=== PATIENT | male | born 1950 | race Caucasian/White ===

== ENCOUNTER 2018-09-25 11:32 | Emergency (ER) | payer MEDICARE, OTHER ==
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
[2018-09-25] MEDS ORDERED: Tetan/Diph/Pertus SYR(Tdap)* 0.5 ML SYR(BOOSTRIX) use SYR IM ONE (12:05)
[2018-09-25] MEDS ORDERED: Acetaminophen TAB* 325 MG PO ONE (14:08)
[2018-09-25 15:52] LABS: ABS Basophils 0.1 10^3/ul (0-0.2); ABS Eosinophils 0 10^3/ul (0-0.6); ABS Monocytes 0.6 10^3/ul (0-0.8); ABS Neutrophils 9.2 10^3/ul (1.5-7.7); ABS Nucleated RBC 0 10^3/ul; Eosinophil % 0.3 %; Hematocrit 37 % (42-52); Hemoglobin 12.8 g/dl (14.0-18.0); Lymphocyte % 9.5 %; Mean Corpuscular HGB Conc 35 g/dl (31-36); Mean Corpuscular Hemoglobin 31 pg (27-31); Mean Corpuscular Volume 89 fL (80-94); Mean Platelet Volume 7.7 fL (7.4-10.4); Nucleated Red Blood Cells % 0.1; Platelet Count 197 10^3/ul (150-450); Red Blood Count 4.09 10^6/ul (4.00-5.40); Red Cell Distribution Width 13 % (10.5-15); White Blood Count 10.8 10^3/ul (3.5-10.8)
[2018-09-25 16:15] LABS: Albumin 3.8 g/dL (3.2-5.2); Albumin/Globulin Ratio 1.7 (1-3); BUN/Creatinine Ratio 18.8 (8-20); Calcium 8.7 mg/dL (8.6-10.3); EGFR Non-African American 113.7 (>60); Globulin 2.3 g/dL (2-4); Potassium 3.9 mmol/L (3.5-5.0); Total Bilirubin 0.5 mg/dL (0.2-1.0); Total Protein 6.1 g/dL (6.4-8.9)
[2018-09-25] MEDS ORDERED: Iohexol 300* (CONTRAST) 10 ML SDV IV ONE (16:34)
[2018-09-25] MEDS ORDERED: HYDROcodone/ACETAMIN 5-325 MG* 1 TAB PO ONE (18:25)
[2018-09-25 20:24] VITALS: BP 129/72
== END 2018-09-25 20:23 | disposition home or self-care (01) ==
LOC: ED 11:32
DX: S32.9XXA Fracture of unspecified parts of lumbosacral spine and pelvis, initial encounter for closed fracture (principal); V03.90XA Pedestrian on foot injured in collision with car, pick-up truck or van, unspecified whether traffic or nontraffic accident, initial encounter; Y92.481 Parking lot as the place of occurrence of the external cause; I25.10 Atherosclerotic heart disease of native coronary artery without angina pectoris; I10 Essential (primary) hypertension; Z23 Encounter for immunization
CPT/HCPCS: 36415; 72131; 72170; 74177; 80053; 85025; 90471; 90715; 96374; 99283; A9270-GY; Q9967

== ENCOUNTER 2019-02-06 12:08 | Inpatient (IN) | payer OTHER, MEDICARE ==
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
[2019-02-06 18:05] LABS: Hematocrit 36 % (42-52); Hemoglobin 12.4 g/dL (14.0-18.0); Mean Corpuscular HGB Conc 34 g/dL (31-36); Mean Corpuscular Hemoglobin 29 pg (27-31); Mean Corpuscular Volume 85 fL (80-94); Mean Platelet Volume 7.4 fL (7.4-10.4); Platelet Count 413 10^3/uL (150-450); Red Blood Count 4.29 10^6 /uL (4.18-5.48); Red Cell Distribution Width 15 % (10.5-15); White Blood Count 7.9 10^3/uL (3.5-10.8)
[2019-02-06 18:19] LABS: Albumin 3.9 g/dL (3.2-5.2); Albumin/Globulin Ratio 1.1 (1-3); BUN/Creatinine Ratio 11.1 (8-20); Calcium 9.1 mg/dL (8.6-10.3); EGFR African American 152.3 (>60); EGFR Non-African American 125.9 (>60); Globulin 3.7 g/dL (2-4); Potassium 3.8 mmol/L (3.5-5.0); Total Bilirubin 0.9 mg/dL (0.2-1.0); Total Protein 7.6 g/dL (6.4-8.9)
[2019-02-06 18:21] LABS: Troponin I 0.01 ng/mL (<0.04)
[2019-02-06] MEDS ORDERED: Metoprolol Tartrate IV* 1 MG/ML 5 ML VIAL IV ONE ×2 (18:33→19:27)
[2019-02-06 19:00] LABS: ABS Basophils 0 10^3/ul (0-0.2); ABS Eosinophils 0.1 10^3/ul (0-0.6); ABS Lymphocytes 1.3 10^3/ul (1.0-4.8); ABS Monocytes 0.6 10^3/ul (0-0.8); ABS Nucleated RBC 0 10^3/ul; Eosinophil % 0.8 %; Lymphocyte % 16.2 %; Nucleated Red Blood Cells % 0
[2019-02-06] MEDS ORDERED: Metoprolol Tartrate IV* 1 MG/ML 5 ML VIAL IV PRN (19:27)
[2019-02-06] MEDS ORDERED: Furosemide IV* 10 MG/ML VIAL (40 MG) IV SLOW PU ONE (19:30)
[2019-02-06] MEDS ORDERED: Iohexol 350* (CONTRAST) 500 ML MDV IV ONE (19:51)
[2019-02-06 20:25] LABS: TSH (Thyroid Stimulating Horm) 3.05 mcIU/mL (0.34-5.60)
[2019-02-06] MEDS: Metoprolol Succinate XL TAB* 50 MG PO SCH (20:31)
[2019-02-06] MEDS ORDERED: Apixaban* 5 MG TAB PO SCH (21:00)
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
[2019-02-07 06:23] LABS: ABS Basophils 0.1 10^3/ul (0-0.2); ABS Eosinophils 0.1 10^3/ul (0-0.6); ABS Lymphocytes 1.4 10^3/ul (1.0-4.8); ABS Monocytes 0.7 10^3/ul (0-0.8); ABS Neutrophils 3.6 10^3/ul (1.5-7.7); ABS Nucleated RBC 0 10^3/ul; Eosinophil % 1.1 %; Hematocrit 32 % (42-52); Hemoglobin 10.9 g/dL (14.0-18.0); Mean Corpuscular HGB Conc 34 g/dL (31-36); Mean Corpuscular Hemoglobin 29 pg (27-31); Mean Corpuscular Volume 84 fL (80-94); Mean Platelet Volume 7.1 fL (7.4-10.4); Nucleated Red Blood Cells % 0; Platelet Count 451 10^3/uL (150-450); Red Blood Count 3.79 10^6 /uL (4.18-5.48); Red Cell Distribution Width 15 % (10.5-15); White Blood Count 5.8 10^3/uL (3.5-10.8)
[2019-02-07 06:35] LABS: BUN/Creatinine Ratio 15.3 (8-20); Calcium 8.6 mg/dL (8.6-10.3); EGFR African American 164.3 (>60); EGFR Non-African American 135.8 (>60); Potassium 3.8 mmol/L (3.5-5.0)
[2019-02-07] MEDS ORDERED: Furosemide IV* 10 MG/ML 2 ML VIAL (20 MG) IV SLOW PU ONE (07:40)
[2019-02-07] MEDS ORDERED: Pneumococcal *Vac Polyvalent 0.5 ML VIAL IM ONE (09:00)
[2019-02-07] MEDS: Metoprolol Succinate XL TAB* 50 MG PO SCH ×2 (10:01→20:57)
[2019-02-07] MEDS: Aspirin EC TAB* 81 MG TAB.EC PO SCH (10:01)
--- NOTE | 2019-02-07 10:36 | ECHO ---
*[facility]* [place] [address] Fax #: [phone] Transthoracic Echocardiogram Patient: Lito Height: 72 in / Charbel Corona 182.9 cm : 1950 Weight: 174.6 lb / Study Date: 02/07/2019 79.4 kg Age: 68 BP: 97 / 65 Gender: M BMI/BSA: 23.7 kg/m^2 HR: 120 bpm / 2.01 m^2 *Translator/Interpreter: * Jovanna Martell RDCS RN *Referring Physician: Senait JacksonReading Physician: * Wander Orozco MD Indications: Congestive Heart Failure. SOB. History: Paroxysmal Atrial fibrillation. Coronary artery disease. Risk factors: Hypertension. Conclusions Summary: 1. Left ventricle: Systolic function is normal. The estimated ejection fraction is 50-55%. 2. Normal cardiac chamber sizes. 3. Functionally benign heart valves. 4. Pericardium, extracardiac: A small pericardial effusion is identified circumferential to the heart. Features are not consistent with tamponade physiology. 5. Since the prior echocardiogram completed 01/23/18, pertinent change is prior pericardial effusion not noted. Study data: Transthoracic echocardiogram. Procedure: Transthoracic echocardiography was performed. Image quality was fair. The patient was sitting upright in bed to facilitate comfortable breathing. Complete 2D, spectral Doppler, and color flow Doppler. Patient status: Inpatient. Patient room number: 444-1. Rhythm: Atrial fibrillation. Findings Left ventricle: The cavity size is normal. Wall thickness is normal. There is a septal knuckle measuring 1.3 cm. Systolic function is normal. The estimated ejection fraction is 50-55%. Left ventricular diastolic function parameters are indeterminate. Right ventricle: The cavity size is normal. Systolic function is normal. Left atrium: The atrium is normal in size. Right atrium: The atrium is normal in size. Mitral valve: The leaflets are mildly thickened. There is trivial regurgitation. The peak diastolic gradient is 2.6 mm Hg. Aortic valve: The valve is trileaflet. The leaflets are mildly thickened. There is no evidence of stenosis. There is no regurgitation. The LVOT to aortic valve VTI ratio is 0.69. The ratio of LVOT to aortic valve peak velocity is 0.77. The ratio of LVOT to aortic valve mean velocity is 0.7. The mean systolic gradient is 2.0 mm Hg. The peak systolic gradient is 4.0 mm Hg. Tricuspid valve: The leaflets are normal thickness. There is trivial regurgitation. Unable to estimate the pulmonary artery systolic pressure. Pulmonic valve: The valve is structurally normal. There is no evidence of stenosis. There is trivial regurgitation. The peak systolic gradient is 2.0 mm Hg. Aorta: Aortic root: The aortic root is not dilated. Ascending aorta: The ascending aorta is not dilated. Aortic arch: The aortic arch is not visualized. Pericardium: A small pericardial effusion is identified circumferential to the heart. There is a left pleural effusion which appears sizable. Doppler: Features are not consistent with tamponade physiology. Pulmonary arteries: Not well visualized. Systemic veins: Inferior vena cava: The vessel is normal in size. Respirophasic changes in dimension are absent. Measurements Left ventricle Value Ref Left atrium continued Value Ref KIA, LAX (L) 3.6 cm 4.2 - 5.8 Vol/bsa, ES, 1-p 27 ml/m^2 11 - 43 ESD, LAX 2.6 cm 2.5 - 4.0 A2C FS, LAX 28 % 25 - 43 Vol/bsa, ES, A/L 22 ml/m^2 16 - 34 PW, ED, LAX 1.0 cm 0.6 - 1.0 IVS/PW, ED 1 Right atrium Value Ref E', lat sangita, TDI 11.4 cm/sec >=10.0 ML dim, ES, A4C 3.1 cm 2.6 - E/e', lat sangita, 7 4.4 TDI SI dim, ES, A4C 3.7 cm 3.4 - E', med sangita, TDI 8.0 cm/sec >=7.0 5.3 E/e', med sangita, 10 TDI Aortic valve Value Ref E', avg, TDI 9.7 cm/sec Sangita diam, ED 2.2 cm --- ----- E/e', avg, TDI 8 <=14 Peak v, S 0.98 m/sec -------- Mean v, S 0.69 m/sec -------- LVOT Value Ref VTI, S 15.0 cm -------- Peak kaylin, S 0.76 m/sec Mean grad, S 2.0 mm Hg -------- Mean kaylin, S 0.49 m/sec Peak grad, S 4.0 mm Hg -------- VTI, S 10.3 cm Mean grad, S 1 mm Hg Mitral valve Value Ref Peak E 0.8 m/sec -------- Ventricular septum Value Ref Decel time 123 ms -------- IVS, ED, LAX 1.0 cm 0.6 - 1.0 Peak grad, D 2.6 mm Hg -------- Right ventricle Value Ref Aortic root Value Ref KIA, LAX 2.1 cm Root diam 3.2 cm <4.1 KIA minor ax, 3.0 cm 1.9 - 3.5 Root max diam, ED 3.2 cm <4.1 A4C mid Ascending aorta Value Ref Left atrium Value Ref AAo AP diam, S 2.8 cm -------- AP dim, ES 3.20 cm 3.00 - 4.00 Inferior vena cava Value Ref ML dim, A4C 3.9 cm Diam 2.1 cm -------- SI dim, A4C 4.8 cm Vol/bsa, ES, 1-p 16 ml/m^2 12 - 37 A4C Legend: (L) and (H) link values outside specified reference range. Prepared and electronically signed by Wander Orozco MD 02/07/2019 10:35
[2019-02-07] MEDS ORDERED: Diltiazem IV push/loading dose 5 MG/ML 5 ML vial (25 mg) IV SLOW PU ONE (12:27)
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
[2019-02-07] MEDS ORDERED: Diltiazem IV VIAL* 125 MG in NS 0.9% 100 ML* 100 ML IV SCH ×2 (13:00→16:00)
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
[2019-02-07 22:56] LABS: Urine Appearance Clear; Urine Bilirubin Negative (Negative); Urine Blood Negative (Negative); Urine Color Yellow; Urine Glucose Negative (Negative); Urine Ketones Negative (Negative); Urine Nitrite Negative (Negative); Urine Protein Negative (Negative); Urine Specific Gravity 1.018 (1.010-1.030); Urine Urobilinogen Positive (Negative)
[2019-02-08] MEDS: Diltiazem TAB* 30 MG PO SCH ×3 (01:27→11:43)
[2019-02-08 06:25] LABS: BUN/Creatinine Ratio 18.8 (8-20); C Reactive Protein 82.93 mg/L (<8.01); Calcium 8.4 mg/dL (8.6-10.3); EGFR African American 137.2 (>60); EGFR Non-African American 113.4 (>60); Potassium 3.9 mmol/L (3.5-5.0)
[2019-02-08] MEDS: Aspirin EC TAB* 81 MG TAB.EC PO SCH (09:20)
[2019-02-08] MEDS: Metoprolol Succinate XL TAB* 50 MG PO SCH (09:20)
[2019-02-08 09:34] VITALS: BP 100/64
[2019-02-08] MEDS ORDERED: Apixaban* 5 MG TAB PO ONE (11:12)
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
[2019-02-11 18:03] LABS: Albumin 2.5 g/dL (3.4-4.7); Albumin/Globulin Ratio 0.88; Total Protein(PEP) 5.4 g/dL (6.3 - 7.9)
== END 2019-02-08 13:45 | disposition home or self-care (01) | DRG 292 ==
LOC: ED 12:08 → MEDTELE 18:57 → OBSVTOIN 02-07 16:23
PROVIDERS: ADMIT Internal Medicine; ATTEND Internal Medicine
DX: I11.0 Hypertensive heart disease with heart failure (principal); E87.1 Hypo-osmolality and hyponatremia; R18.8 Other ascites; I31.3 Pericardial effusion (noninflammatory); I48.0 Paroxysmal atrial fibrillation; I50.33 Acute on chronic diastolic (congestive) heart failure; I25.10 Atherosclerotic heart disease of native coronary artery without angina pectoris; Z86.11 Personal history of tuberculosis; Z95.5 Presence of coronary angioplasty implant and graft; Z82.49 Family history of ischemic heart disease and other diseases of the circulatory system; Z23 Encounter for immunization; Z79.82 Long term (current) use of aspirin; Z79.01 Long term (current) use of anticoagulants
CPT/HCPCS: 36415; 71045; 71275; 80048; 80053; 81003; 83605; 83880; 84155; 84165; 84443; 84484; 85025; 85060; 86140; 87040; 90732; 93005; 93306; 99283; A9270-GY; J1940; J3490; Q9967